=== PATIENT | male | born 1985 | race American Indian/Alaskan Native ===

== ENCOUNTER 2017-05-12 07:46 | Emergency (ER) | payer OTHER ==
[~2017-05-12] VITALS: Ht 180.3 cm; Wt 111.1 kg
[2017-05-12] MEDS ORDERED: METFORMIN HCL500 M2 PO (07:57)
[2017-05-12] MEDS ORDERED: LEVOTHYROXINE25 MCG PO (07:58)
[2017-05-12] MEDS ORDERED: METHYLPREDNISOLO4 M1 PO (07:59)
== END 2017-05-12 08:17 | disposition home or self-care (01) ==
LOC: ED 07:46
DX: S83.92XA Sprain of unspecified site of left knee, initial encounter (principal); X58.XXXA Exposure to other specified factors, initial encounter
CPT/HCPCS: 99283